=== PATIENT | female | born 1995 | race Caucasian/White ===

== ENCOUNTER → 2017-10-03 22:07 | Outpatient (CLI) | payer MEDICAID, SELFPAY ==
[2017-10-09 20:08] LABS: Chlamydia By Nucleic Acid AMP Negative (Negative)
[2017-10-10 07:00] LABS: Gonococcus By Nucleic Acid AMP Negative (Negative)
[2017-10-10 07:09] LABS: HPV Reflexed? NOT INDICATED
== END ==
PROVIDERS: Visit Provider Nurse Practitioner Adult Health
DX: Z01.419 Encounter for gynecological examination (general) (routine) without abnormal findings (principal)
CPT/HCPCS: 87491; 87591; 88175; G0145

== ENCOUNTER → 2017-10-27 08:15 | Outpatient (CLI) | payer MEDICAID, SELFPAY ==
[2017-10-27 10:21] LABS: Anion Gap 10 (5-15); BUN 11 mg/dL (7-18); BUN/Creat Ratio 12.9 RATIO (10-20); Calcium,Total 8.6 mg/dL (8.5-10.1); Chloride 107 mmol/L (98-107); Cholesterol 141 mg/dL (200); Creatinine, Serum 0.85 mg/dL (0.55-1.02); EST Glomerular Filtration Rate 87 mL/min (>60); Est Glom Filt Rate - Afr Amer 105 mL/min (>60); Glucose 82 mg/dL (74-106); High Density Lipoprotein 57 mg/dL; Sodium Level 141 mmol/L (136-145); Triglycerides 99 mg/dL; Very Low Density Lipoprotein 20 mg/dL (5-40)
== END ==
PROVIDERS: Family Provider Family Medicine; PCP Family Medicine; Visit Provider Nurse Practitioner Adult Health
DX: Z13.220 Encounter for screening for lipoid disorders (principal); Z13.1 Encounter for screening for diabetes mellitus
CPT/HCPCS: 36415; 80048; 80061

== ENCOUNTER 2019-04-22 10:56 | Emergency (ER) | payer MEDICAID, SELFPAY ==
[2019-04-22 10:57] VITALS: BP 138/92; PULSE 102; RESP 16; TEMP 36.8; O2SAT 97; BMI 28.3
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
[2019-04-22] MEDS: Ibuprofen 600 MG Tablet PO (12:49)
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
== END 2019-04-22 14:15 | disposition home or self-care (01) ==
LOC: ED 12:10
PROVIDERS: Emergency Provider Emergency Medicine; PCP Family Medicine
DX: S39.012A Strain of muscle, fascia and tendon of lower back, initial encounter (principal); S29.012A Strain of muscle and tendon of back wall of thorax, initial encounter; S09.90XA Unspecified injury of head, initial encounter; V43.52XA Car driver injured in collision with other type car in traffic accident, initial encounter; Y93.I9 Activity, other involving external motion; Y92.410 Unspecified street and highway as the place of occurrence of the external cause; Y99.8 Other external cause status
CPT/HCPCS: 70450; 72100; 72125; 73030; 73130; 99283

== ENCOUNTER 2019-09-27 15:30 | Outpatient (RCR) | payer OTHER, SELFPAY ==
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
--- NOTE | 2019-05-15 13:43 | HP.PT.NRP ---
JENNIFER DUNNE was seen in my office for initial evaluation on 05/06/19. The following Plan of Care was established for this patient: Initial Frequency: 2-3x /Week Initial Duration: 4-6 Weeks Patient/Client Instruction: Educate patient on: Condition, Plan of Care, Risk Factors, Benefits of Fitness Program For the Purpose of:: To improve self management Therapeutic Exercise to Include: Strength training, Body mechanics, Postural training, Flexibilty training, Neuromotor development, Scapular Strength/Stabilization For the Purpose of:: To decrease pain, To increase ROM, To improve muscle performance and motor function, To increase tolerance to activity/condition/position, To improve ability of physical actions for home/community/work/leisure TENS: Yes IF ES: Yes Cryotherapy (ice pack, ice massage): Yes Thermo therapy (hot pack): Yes Ultrasound (thermal/non thermal): Yes For the Purpose of:: To decrease pain, To decrease swelling/inflammation, To increase ROM, To improve nutrient delivery to tissue This patient was last seen in our office 05/07/19. Pertinent comments regarding their Physical therapy will appear below: I RECEIVED A NOTE TODAY STATING PATIENT CANCELLED ALL REMAINING MADELYN'TS. I WILL D/C HER CHART AT THIS TIME. WE WOULD BE HAPPY TO RESUME CARE WHEN/IF APPROPRIATE. At this point I will be discontinuing this patient from physical therapy. I would be happy to see this patient again in the future if found appropriate by the physician. Thank you! Soraya Malik, PT, Cert MDT
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
== END 2019-09-27 19:00 | disposition home or self-care (01) ==
LOC: PT 15:30
PROVIDERS: PCP Family Medicine; Referring Provider Family Medicine; Visit Provider Family Medicine
DX: M54.2 Cervicalgia (principal)
CPT/HCPCS: 97035; 97110; 97112; 97162; 97164; 97530

== ENCOUNTER → 2019-09-30 | Outpatient (CLI) | payer OTHER, SELFPAY ==
[2019-09-30 18:21] LABS: Internal QC Validated? YES +Cl - CLEAR BKGD; Pregnancy, Serum, hCG Quali. NEGATIVE Negative
== END | disposition home or self-care (01) ==
LOC: MFPLAB 15:27
PROVIDERS: Nurse Practitioner Family; PCP Family Medicine; Referring Provider Family Medicine; Visit Provider Family Medicine
DX: N91.2 Amenorrhea, unspecified (principal)
CPT/HCPCS: 36415; 84703

== ENCOUNTER → 2019-10-15 | Outpatient (CLI) | payer OTHER, SELFPAY ==
[2019-10-15 15:14] VITALS: BMI 28.3
[2019-10-15 17:23] LABS: Follicle Stimulating Hormone 6.5 mIU/mL; Thyroid Stim Hormone (TSH) 1.92 uIU/mL (0.358-3.74)
== END | disposition home or self-care (01) ==
LOC: PAVLAB 15:26
PROVIDERS: PCP Family Medicine; Referring Provider Nurse Practitioner Women's Health; Visit Provider Nurse Practitioner Women's Health
DX: N91.5 Oligomenorrhea, unspecified (principal); Z13.29 Encounter for screening for other suspected endocrine disorder
CPT/HCPCS: 36415; 83001; 84146; 84443

== ENCOUNTER → 2019-11-19 | Outpatient (CLI) | payer OTHER, SELFPAY ==
[2019-10-15 15:14] VITALS: BMI 28.3
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
== END | disposition home or self-care (01) ==
PROVIDERS: PCP Family Medicine; Referring Provider Obstetrics & Gynecology; Visit Provider Obstetrics & Gynecology
DX: N91.5 Oligomenorrhea, unspecified (principal)
CPT/HCPCS: 76830; 76856

== ENCOUNTER → 2019-12-04 | Outpatient (CLI) | payer OTHER, SELFPAY ==
[2019-10-15 15:14] VITALS: BMI 28.3
[2019-12-04 11:06] LABS: Progesterone Level 1.05 ng/mL (See Comment)
== END | disposition home or self-care (01) ==
LOC: PAVLAB 10:38
PROVIDERS: PCP Family Medicine; Referring Provider Nurse Practitioner Women's Health; Visit Provider Nurse Practitioner Women's Health
DX: N91.5 Oligomenorrhea, unspecified (principal)
CPT/HCPCS: 36415; 84144

== ENCOUNTER → 2020-03-10 16:25 | Outpatient (CLI) | payer OTHER, SELFPAY ==
[2019-12-15 11:01] VITALS: BMI 32.3
[2020-03-10 17:42] LABS: Progesterone Level 0.86 ng/mL (See Comment)
== END ==
PROVIDERS: PCP Family Medicine; Referring Provider Nurse Practitioner Women's Health; Visit Provider Nurse Practitioner Women's Health
DX: N97.0 Female infertility associated with anovulation (principal)
CPT/HCPCS: 36415; 84144

== ENCOUNTER → 2021-06-29 | Outpatient (CLI) | payer OTHER, SELFPAY ==
[2021-06-29 18:26] LABS: Vitamin B12 361 pg/mL (211-911); Vitamin D,25 Hydroxy 45.6 ng/mL
[2021-06-29 18:31] LABS: Anion Gap 7 (5-15); BUN 10 mg/dL (7-18); BUN/Creat Ratio 14.8 RATIO (10-20); Calcium,Total 9.1 mg/dL (8.5-10.1); Chloride 108 mmol/L (98-107); Cholesterol 190 mg/dL (200); Creatinine, Serum 0.68 mg/dL (0.55-1.02); EST Glomerular Filtration Rate 110 mL/min (>60); Est Glom Filt Rate - Afr Amer 133 mL/min (>60); Glucose 88 mg/dL (74-106); High Density Lipoprotein 71 mg/dL; Iron 33 ug/dL (50-170); Potassium 4.1 mmol/L (3.5-5.1); Sodium Level 138 mmol/L (136-145); Thyroid Stim Hormone (TSH) 2.03 uIU/mL (0.358-3.74); Triglycerides 146 mg/dL; Very Low Density Lipoprotein 29 mg/dL (5-40)
== END | disposition home or self-care (01) ==
LOC: MTLAB 16:34
PROVIDERS: PCP Family Medicine; Referring Provider Family Medicine; Visit Provider Family Medicine
DX: E28.2 Polycystic ovarian syndrome (principal); L65.9 Nonscarring hair loss, unspecified
CPT/HCPCS: 36415; 80048; 80061; 82306; 82607; 83540; 84443

== ENCOUNTER → 2021-09-24 | Outpatient (CLI) | payer OTHER, SELFPAY ==
[2021-09-24 12:21] LABS: Vitamin B12 807 pg/mL (211-911)
[2021-09-24 12:27] LABS: Iron 41 ug/dL (50-170)
== END | disposition home or self-care (01) ==
LOC: MTLAB 09:21
PROVIDERS: PCP Family Medicine; Referring Provider Family Medicine; Visit Provider Family Medicine
DX: E61.1 Iron deficiency (principal); E53.8 Deficiency of other specified B group vitamins
CPT/HCPCS: 36415; 82607; 83540